=== PATIENT | male | born 1985 | race Two or more races ===

== ENCOUNTER 2018-01-27 12:55 | Emergency (ER) | payer BC ==
[2018-01-27 14:02] VITALS: BP 148/91
--- NOTE | 2018-01-27 14:06 | UC ---
Throat Pain/Nasal David HPI - HPI Summary HPI Summary: Py c/o sudden onset of sore throat and painful "white spot" on back of throat. - History of Current Complaint Stated Complaint: THROAT COMPLAINT Time Seen by Provider: 01/27/18 13:44 Hx Obtained From: Patient Onset/Duration: Sudden Onset, Still Present Severity: Mild Pain Intensity: 2 Cough: None Associated Signs & Symptoms: Positive: Dysphagia - Epiglottits Risk Factors Epiglottis Risk Factors: Negative - Allergies/Home Medications Allergies/Adverse Reactions: Allergies Allergy/AdvReac Type Severity Reaction Status Date / Time No Known Allergies Allergy Verified 01/27/18 13:54 Home Medications: Home Medications Omeprazole CAP* [Prilosec CAP* 20 MG] 20 mg PO DAILY 01/27/18 [History Confirmed 01/27/18] Sertraline* [Zoloft*] 100 mg PO DAILY 01/27/18 [History Confirmed 01/27/18] hydrOXYzine HCL TAB* [Atarax 10 MG TAB*] 10 mg PO BEDTIME PRN 01/27/18 [History Confirmed 01/27/18] PMH/Surg Hx/FS Hx/Imm Hx Previously Healthy: Yes - Surgical History Surgical History: Yes Surgery Procedure, Year, and Place: TONSILECTOMY - Family History Known Family History: Positive: Cardiac Disease, Other - no FMH head injury - Social History Occupation: Employed Full-time Lives: With Family Alcohol Use: Rare Substance Use Type: None Smoking Status (MU): Never Smoked Tobacco Review of Systems Constitutional: Chills Skin: Negative Eyes: Negative ENT: Sore Throat Respiratory: Negative Cardiovascular: Negative Gastrointestinal: Negative Genitourinary: Negative Motor: Negative Neurovascular: Negative Musculoskeletal: Negative Neurological: Negative Psychological: Negative Is Patient Immunocompromised?: No All Other Systems Reviewed And Are Negative: Yes Physical Exam Triage Information Reviewed: Yes Appearance: Well-Appearing Vital Signs: Initial Vital Signs Temp 99.3 F 01/27/18 13:58 Pulse 94 01/27/18 13:58 Resp 16 01/27/18 13:58 BP 148/91 01/27/18 13:58 Pulse Ox 100 01/27/18 13:58 Vital Signs Reviewed: Yes Eye Exam: Normal ENT Exam: Other ENT: Positive: Tonsillar swelling, Tonsillar exudate Neck exam: Normal Respiratory Exam: Normal Cardiovascular Exam: Normal Musculoskeletal Exam: Normal Neurological Exam: Normal Psychological Exam: Normal Skin Exam: Normal Diagnostics - Laboratory Diagnostic Studies Completed/Ordered: rapid strep: negative Throat Pain/Nasal Course/Dx - Differential Dx/Diagnosis Differential Diagnosis/HQI/PQRI: Influenza, Otitis Media, Tonsillitis, URI Provider Diagnoses: aphthous stomatitis Discharge - Sign-Out/Discharge Documenting (check all that apply): Discharge - Discharge Plan Condition: Stable Disposition: HOME Prescriptions: Magic Mouth Was-JOSE/MAAL/LIDO* 5 ml SWISH SWAL QID PRN #100 ml PRN Reason: Pain Patient Education Materials: Canker Sores (ED) Referrals: Inna Lopez MD [Primary Care Provider] - If Needed - Billing Disposition and Condition Condition: STABLE Disposition: HOME
== END 2018-01-27 14:37 | disposition home or self-care (01) ==
LOC: UCCORT 12:55
DX: K12.0 Recurrent oral aphthae (principal)
CPT/HCPCS: 87651; 99212; G0463